=== PATIENT | male | born 1975 ===

== ENCOUNTER 2019-03-30 22:44 | Emergency (ER) | payer MEDICARE ==
[~2019-03-30] VITALS: Ht 182.9 cm; Wt 128.5 kg
[2019-03-30 22:51] VITALS: TEMP 97.3
[2019-03-30] MEDS ORDERED: PRINIVIL5 MG PO (23:54)
[2019-03-30] MEDS ORDERED: NEURONTIN300 MG/CAP PO (23:55)
[2019-03-30] MEDS ORDERED: INSULIN (23:55)
[2019-03-31 00:09] LABS: BASO % 0.3 % (0.0-2.0); EOS # 0.1 (0.0-0.7); EOS % 0.7 % (0-4.0); GRAN # 4.7 (1.4-6.5); GRAN % 49.4 % (42.2-75.2); HEMATOCRIT 48.7 % (42.0-52.0); HEMOGLOBIN 16.2 g/dl (13.5-18.0); LYMPH # 3.7 (1.2-3.4); LYMPH % 38.6 % (20.0-51.0); MEAN CELL VOLUME 84 fl (80.0-100.0); MEAN CORPUSCULAR HEMOGLOBIN 28 pg (27.0-31.0); MEAN CORPUSCULAR HGB CONC 33 g/dl (33.0-37.0); MEAN PLATELET VOLUME 10.5 fl (7.4-10.4); MONO % 10.5 % (1.7-9.3); PLATELET COUNT 253 K/mm3 (130-400); RED BLOOD COUNT 5.82 M/mm3 (4.20-5.60); REDCELL DISTRIBUTION WIDTH-CV 11.9 % (11.5-14.5)
[2019-03-31 00:23] LABS: ANION GAP 10 mmol/L (7-16); BLOOD UREA NITROGEN 12 mg/dL (9-20); C-REACTIVE PROTEIN < 0.5 mg/dL (0.0-0.9); CALCIUM 9.4 mg/dL (8.4-10.2); CARBON DIOXIDE 26 mmol/L (22-30); CHLORIDE 102 mmol/L (98-107); CREATININE, serum 0.59 (0.66-1.25); GLUCOSE 236 mg/dL (74-106); POTASSIUM 4.2 mmol/L (3.4-5.0); SODIUM 138 mmol/L (137-145); URIC ACID 3.8 mg/dL (3.5-8.5)
[2019-03-31] MEDS ORDERED: NORCO 325 MG-51 TAB PO (02:27)
[2019-03-31 02:37] VITALS: BP 141/84; PULSE 93
== END 2019-03-31 02:44 | disposition home or self-care (01) ==
LOC: COL.ER 22:44
PROVIDERS: Emergency Medicine
DX: E11.40 Type 2 diabetes mellitus with diabetic neuropathy, unspecified (principal); M25.561 Pain in right knee; I10 Essential (primary) hypertension; E11.9 Type 2 diabetes mellitus without complications; Z79.4 Long term (current) use of insulin
CPT/HCPCS: J1170; L1846

== ENCOUNTER 2019-04-16 03:59 | Emergency (ER) | payer MEDICARE ==
[~2019-04-16] VITALS: Ht 182.9 cm; Wt 122.7 kg
[~2019-04-16 03:59] MED LIST: INSULIN; NEURONTIN300 MG/CAP PO; NORCO 325 MG-51 TAB PO; PRINIVIL5 MG PO
[2019-04-16] MEDS ORDERED: NEURONTIN300 MG/CAP PO (06:56)
[2019-04-16 07:35] VITALS: BP 181/111; PULSE 93; TEMP 98
== END 2019-04-16 07:35 | disposition home or self-care (01) ==
LOC: COL.ER 03:59
DX: E11.42 Type 2 diabetes mellitus with diabetic polyneuropathy (principal); I10 Essential (primary) hypertension; Z79.4 Long term (current) use of insulin
CPT/HCPCS: J1885

== ENCOUNTER 2019-04-23 10:39 | Emergency (ER) | payer BC ==
[2019-04-23 10:54] VITALS: TEMP 97.3
[2019-04-23 11:25] LABS: COLLECTION METHOD CLEAN CATCH
[2019-04-23 11:36] LABS: MUCOUS Present /lpf; PH 5 (5-8); SQUAMOUS EPITHELIAL 0-2 /hpf; URINE APPEARANCE Hazy; URINE BACTERIA None Seen /hpf; URINE BILIRUBIN Negative (NEGATIVE); URINE BLOOD Negative (NEGATIVE); URINE COLOR Yellow; URINE GLUCOSE 2+ (NEGATIVE); URINE KETONE Negative (NEGATIVE); URINE LEUKOCYTE ESTERASE Negative (NEGATIVE); URINE NITRATE Negative (NEGATIVE); URINE PROTEIN(semi-quant) Negative (NEGATIVE); URINE RBC 0-2 /hpf; URINE UROBILINOGEN Negative (NEGATIVE)
[2019-04-23 11:36] LABS: BASO % 0.3 % (0.0-2.0); EOS # 0.1 (0.0-0.7); GRAN # 4.2 (1.4-6.5); GRAN % 58.6 % (42.2-75.2); HEMATOCRIT 50.3 % (42.0-52.0); HEMOGLOBIN 17.1 g/dl (13.5-18.0); LYMPH # 1.6 (1.2-3.4); LYMPH % 22.6 % (20.0-51.0); MEAN CELL VOLUME 82 fl (80.0-100.0); MEAN CORPUSCULAR HEMOGLOBIN 28 pg (27.0-31.0); MEAN CORPUSCULAR HGB CONC 34 g/dl (33.0-37.0); MEAN PLATELET VOLUME 10.4 fl (7.4-10.4); MONO # 1.2 (0.1-0.6); MONO % 17.2 % (1.7-9.3); PLATELET COUNT 290 K/mm3 (130-400); RED BLOOD COUNT 6.15 M/mm3 (4.20-5.60); REDCELL DISTRIBUTION WIDTH-CV 11.9 % (11.5-14.5)
[2019-04-23 11:53] LABS: ALANINE AMINOTRANSFERASE < 6 U/L (21-72); ALBUMIN 3.9 gm/dL (3.5-5.0); ALKALINE PHOSPHATASE 65 U/L (50-136); ANION GAP 15 mmol/L (7-16); AST,SGOT 13 U/L (15-37); BILIRUBIN,TOTAL 0.9 mg/dL (0.0-1.0); BLOOD UREA NITROGEN 12 mg/dL (9-20); C-REACTIVE PROTEIN 2.5 mg/dL (0.0-0.9); CARBON DIOXIDE 21 mmol/L (22-30); CHLORIDE 103 mmol/L (98-107); CREATININE, serum 0.66 (0.66-1.25); GLUCOSE 248 mg/dL (74-106); LIPASE 40 U/L (23-300); SODIUM 139 mmol/L (137-145); TOTAL PROTEIN 7.4 gm/dL (6.4-8.2)
[2019-04-23] MEDS ORDERED: ZOFRAN ODT8 MG PO (14:37)
[2019-04-23] MEDS ORDERED: NEURONTIN300 MG/CAP PO (14:37)
[2019-04-23 15:21] VITALS: BP 166/123; PULSE 98
== END 2019-04-23 16:21 | disposition home or self-care (01) ==
LOC: COL.ER 10:39
PROVIDERS: Emergency Medicine
DX: R19.7 Diarrhea, unspecified (principal); R11.2 Nausea with vomiting, unspecified; K82.8 Other specified diseases of gallbladder; I10 Essential (primary) hypertension; E11.40 Type 2 diabetes mellitus with diabetic neuropathy, unspecified; Z91.14 Patient's other noncompliance with medication regimen; Z79.4 Long term (current) use of insulin
CPT/HCPCS: J2270; J2405; J2550; J7030; Q9967

== ENCOUNTER 2019-05-03 05:10 | Emergency (ER) | payer MEDICARE ==
[~2019-05-03] VITALS: Ht 182.9 cm; Wt 122.3 kg
[~2019-05-03 05:10] MED LIST changes: +ZOFRAN ODT8 MG PO
[2019-05-03 05:17] VITALS: TEMP 98.3
[2019-05-03 07:00] VITALS: BP 133/90; PULSE 102
== END 2019-05-03 07:00 | disposition home or self-care (01) ==
LOC: COL.ER 05:10
DX: M25.562 Pain in left knee (principal); G89.18 Other acute postprocedural pain
CPT/HCPCS: J3010

== ENCOUNTER 2019-06-05 18:19 | Emergency (ER) | payer MEDICARE ==
[~2019-06-05] VITALS: Ht 182.9 cm; Wt 116.4 kg
[2019-06-05 18:24] VITALS: TEMP 96.9
[2019-06-05 18:51] LABS: BASO % 0.2 % (0.0-2.0); EOS % 0.3 % (0-4.0); GRAN # 9.2 (1.4-6.5); GRAN % 72.6 % (42.2-75.2); HEMATOCRIT 49.6 % (42.0-52.0); HEMOGLOBIN 16.5 g/dl (13.5-18.0); LYMPH # 2.4 (1.2-3.4); LYMPH % 18.5 % (20.0-51.0); MEAN CELL VOLUME 83 fl (80.0-100.0); MEAN CORPUSCULAR HEMOGLOBIN 28 pg (27.0-31.0); MEAN CORPUSCULAR HGB CONC 33 g/dl (33.0-37.0); MEAN PLATELET VOLUME 10.3 fl (7.4-10.4); PLATELET COUNT 309 K/mm3 (130-400); RED BLOOD COUNT 5.97 M/mm3 (4.20-5.60); REDCELL DISTRIBUTION WIDTH-CV 12.1 % (11.5-14.5)
[2019-06-05 19:04] LABS: ALANINE AMINOTRANSFERASE < 6 U/L (21-72); ALBUMIN 4.1 gm/dL (3.5-5.0); ALKALINE PHOSPHATASE 65 U/L (50-136); ANION GAP 11 mmol/L (7-16); AST,SGOT 16 U/L (15-37); BILIRUBIN,TOTAL 0.8 mg/dL (0.0-1.0); BLOOD UREA NITROGEN 9 mg/dL (9-20); C-REACTIVE PROTEIN < 0.5 mg/dL (0.0-0.9); CALCIUM 9.7 mg/dL (8.4-10.2); CARBON DIOXIDE 26 mmol/L (22-30); CHLORIDE 99 mmol/L (98-107); CREATININE, serum 0.63 (0.66-1.25); GLUCOSE 213 mg/dL (74-106); LIPASE 43 U/L (23-300); POTASSIUM 4.1 mmol/L (3.4-5.0); SODIUM 136 mmol/L (137-145); TOTAL PROTEIN 7.5 gm/dL (6.4-8.2)
[2019-06-05] MEDS ORDERED: ZOFRAN ODT4 MG PO (20:54)
[2019-06-05] MEDS ORDERED: NORCO 325 MG-51 TAB PO (20:54)
[2019-06-05 21:10] VITALS: BP 137/115; PULSE 95
== END 2019-06-05 21:15 | disposition home or self-care (01) ==
LOC: COL.ER 18:19
PROVIDERS: Emergency Medicine
DX: R11.2 Nausea with vomiting, unspecified (principal); R10.13 Epigastric pain; R19.7 Diarrhea, unspecified; E11.9 Type 2 diabetes mellitus without complications; I10 Essential (primary) hypertension; Z79.82 Long term (current) use of aspirin; Z79.4 Long term (current) use of insulin
CPT/HCPCS: J2270; J2405; J7030; Q9967

== ENCOUNTER 2019-06-07 13:33 | Emergency (ER) | payer MEDICARE ==
[~2019-06-07] VITALS: Ht 182.9 cm; Wt 116.4 kg
[~2019-06-07 13:33] MED LIST changes: +ZOFRAN ODT4 MG PO
[2019-06-07 13:40] VITALS: TEMP 97
[2019-06-07 14:44] LABS: BASO % 0.4 % (0.0-2.0); EOS # 0.1 (0.0-0.7); EOS % 1.5 % (0-4.0); GRAN # 4.6 (1.4-6.5); GRAN % 59.1 % (42.2-75.2); HEMATOCRIT 49.6 % (42.0-52.0); HEMOGLOBIN 16.4 g/dl (13.5-18.0); LYMPH % 25.2 % (20.0-51.0); MEAN CELL VOLUME 83 fl (80.0-100.0); MEAN CORPUSCULAR HEMOGLOBIN 27 pg (27.0-31.0); MEAN CORPUSCULAR HGB CONC 33 g/dl (33.0-37.0); MEAN PLATELET VOLUME 10.7 fl (7.4-10.4); MONO # 1.1 (0.1-0.6); MONO % 13.4 % (1.7-9.3); PLATELET COUNT 292 K/mm3 (130-400); RED BLOOD COUNT 5.99 M/mm3 (4.20-5.60)
[2019-06-07 14:56] LABS: BILIRUBIN,TOTAL 0.7 mg/dL (0.0-1.0); C-REACTIVE PROTEIN 1.2 mg/dL (0.0-0.9); CALCIUM 9.5 mg/dL (8.4-10.2); CREATININE, serum 0.62 (0.66-1.25); POTASSIUM 3.9 mmol/L (3.4-5.0); TOTAL PROTEIN 7.4 gm/dL (6.4-8.2)
[2019-06-07] MEDS ORDERED: PHENERGAN 25 TA25 MG PO (18:42)
[2019-06-07] MEDS ORDERED: PERCOCET 325 MG1 TA2 PO (18:42)
[2019-06-07 19:09] VITALS: BP 171/116; PULSE 113
== END 2019-06-07 19:09 | disposition home or self-care (01) ==
LOC: COL.ER 13:33
PROVIDERS: Nurse Practitioner
DX: R10.13 Epigastric pain (principal); I10 Essential (primary) hypertension; E11.9 Type 2 diabetes mellitus without complications; Z79.4 Long term (current) use of insulin
CPT/HCPCS: J1170; J2270; J2405; J2550; J7030

== ENCOUNTER 2019-06-15 18:43 | Emergency (ER) | payer MEDICARE ==
[~2019-06-15] VITALS: Ht 182.9 cm; Wt 116.4 kg
[~2019-06-15 18:43] MED LIST changes: +PERCOCET 325 MG1 TA2 PO; +PHENERGAN 25 TA25 MG PO
[2019-06-15 18:45] VITALS: TEMP 96.8
[2019-06-15 19:11] LABS: COLLECTION METHOD CLEAN CATCH
[2019-06-15 19:14] LABS: BASO # 0.1 (0.0-0.2); BASO % 0.5 % (0.0-2.0); EOS % 0.2 % (0-4.0); GRAN # 6.3 (1.4-6.5); GRAN % 60.5 % (42.2-75.2); HEMATOCRIT 50.1 % (42.0-52.0); HEMOGLOBIN 16.4 g/dl (13.5-18.0); LYMPH # 2.8 (1.2-3.4); LYMPH % 27.3 % (20.0-51.0); MEAN CELL VOLUME 85 fl (80.0-100.0); MEAN CORPUSCULAR HEMOGLOBIN 28 pg (27.0-31.0); MEAN CORPUSCULAR HGB CONC 33 g/dl (33.0-37.0); MEAN PLATELET VOLUME 9.8 fl (7.4-10.4); MONO # 1.1 (0.1-0.6); MONO % 10.7 % (1.7-9.3); PLATELET COUNT 348 K/mm3 (130-400); REDCELL DISTRIBUTION WIDTH-CV 12.1 % (11.5-14.5)
[2019-06-15 19:35] LABS: ALBUMIN 4.4 gm/dL (3.5-5.0); BILIRUBIN,TOTAL 0.5 mg/dL (0.0-1.0); CALCIUM 9.7 mg/dL (8.4-10.2); CREATININE, serum 0.7 (0.66-1.25); POTASSIUM 4.5 mmol/L (3.4-5.0)
[2019-06-15 19:41] LABS: AMORPHOUS CRYSTAL Present /uL; HYALINE CAST >12 /lpf; MUCOUS Present /lpf; PH 7 (5-8); SQUAMOUS EPITHELIAL 0-2 /hpf; URINE APPEARANCE Hazy; URINE BACTERIA None Seen /hpf; URINE BILIRUBIN Negative (NEGATIVE); URINE BLOOD Negative (NEGATIVE); URINE COLOR Yellow; URINE GLUCOSE 2+ (NEGATIVE); URINE KETONE Negative (NEGATIVE); URINE LEUKOCYTE ESTERASE Negative (NEGATIVE); URINE NITRATE Negative (NEGATIVE); URINE PROTEIN(semi-quant) 1+ (NEGATIVE); URINE RBC 0-2 /hpf; URINE UROBILINOGEN Negative (NEGATIVE)
[2019-06-15 21:17] VITALS: BP 134/80; PULSE 89
== END 2019-06-15 21:15 | disposition home or self-care (01) ==
LOC: COL.ER 18:43
PROVIDERS: Nurse Practitioner Primary Care
DX: R10.11 Right upper quadrant pain (principal); Z79.4 Long term (current) use of insulin; Z88.6 Allergy status to analgesic agent
CPT/HCPCS: J1885

== ENCOUNTER 2019-09-18 21:08 | Emergency (ER) | payer MEDICARE ==
[~2019-09-18] VITALS: Ht 182.9 cm; Wt 103.6 kg
[2019-09-18 21:18] VITALS: TEMP 99.1
[2019-09-18 22:51] LABS: BASO % 0.3 % (0.0-2.0); EOS # 0.1 (0.0-0.7); EOS % 0.6 % (0-4.0); GRAN % 55.1 % (42.2-75.2); HEMOGLOBIN 15.8 g/dl (13.5-18.0); LYMPH # 3.7 (1.2-3.4); LYMPH % 34.2 % (20.0-51.0); MEAN CELL VOLUME 83 fl (80.0-100.0); MEAN CORPUSCULAR HEMOGLOBIN 27 pg (27.0-31.0); MEAN CORPUSCULAR HGB CONC 33 g/dl (33.0-37.0); MEAN PLATELET VOLUME 9.5 fl (7.4-10.4); MONO % 9.5 % (1.7-9.3); PLATELET COUNT 317 K/mm3 (130-400); RED BLOOD COUNT 5.78 M/mm3 (4.20-5.60); REDCELL DISTRIBUTION WIDTH-CV 12.3 % (11.5-14.5)
[2019-09-18 23:04] LABS: ALBUMIN 4.4 gm/dL (3.5-5.0); BILIRUBIN,TOTAL 0.3 mg/dL (0.0-1.0); CALCIUM 9.6 mg/dL (8.4-10.2); CREATININE, serum 0.74 (0.66-1.25); POTASSIUM 4.5 mmol/L (3.4-5.0); TOTAL PROTEIN 7.9 gm/dL (6.4-8.2)
[2019-09-18 23:31] VITALS: BP 143/81; PULSE 118
[2019-09-19 00:16] LABS: COLLECTION METHOD CLEAN CATCH
[2019-09-19] MEDS ORDERED: GLUCOPHAGE500 MG/TAB (00:17)
[2019-09-19 00:27] LABS: MUCOUS Present /lpf; PH 6 (5-8); SQUAMOUS EPITHELIAL 0-2 /hpf; URINE APPEARANCE Clear; URINE BACTERIA None Seen /hpf; URINE BILIRUBIN Negative (NEGATIVE); URINE BLOOD Negative (NEGATIVE); URINE COLOR Yellow; URINE GLUCOSE 3+ (NEGATIVE); URINE KETONE Negative (NEGATIVE); URINE LEUKOCYTE ESTERASE Negative (NEGATIVE); URINE NITRATE Negative (NEGATIVE); URINE PROTEIN(semi-quant) Negative (NEGATIVE); URINE RBC None Seen /hpf; URINE UROBILINOGEN Negative (NEGATIVE)
[2019-09-19] MEDS ORDERED: PERCOCET 325 MG1 TA2 PO (00:47)
[2019-09-19] MEDS ORDERED: LIDODERM 5% PATC1 EA TP (00:47)
[2019-09-19] MEDS ORDERED: FLEXERIL 1010 MG/TAB PO (00:47)
== END 2019-09-19 01:11 | disposition home or self-care (01) ==
LOC: COL.ER 21:08
PROVIDERS: Physician Assistant
DX: S39.012A Strain of muscle, fascia and tendon of lower back, initial encounter (principal); E11.9 Type 2 diabetes mellitus without complications; M54.17 Radiculopathy, lumbosacral region; I10 Essential (primary) hypertension; E11.42 Type 2 diabetes mellitus with diabetic polyneuropathy; Z88.6 Allergy status to analgesic agent; Z79.4 Long term (current) use of insulin; X58.XXXA Exposure to other specified factors, initial encounter
CPT/HCPCS: J1885

== ENCOUNTER 2019-09-21 09:53 | Emergency (ER) | payer MEDICARE ==
[~2019-09-21] VITALS: Ht 182.9 cm; Wt 127.3 kg
[~2019-09-21 09:53] MED LIST changes: +FLEXERIL 1010 MG/TAB PO; +GLUCOPHAGE500 MG/TAB; +LIDODERM 5% PATC1 EA TP
[2019-09-21 10:07] VITALS: BP 176/103; TEMP 98.7
[2019-09-21 11:25] VITALS: PULSE 91
== END 2019-09-21 11:25 | disposition home or self-care (01) ==
LOC: COL.ER 09:53
DX: M79.652 Pain in left thigh (principal); M79.651 Pain in right thigh; E11.9 Type 2 diabetes mellitus without complications; I10 Essential (primary) hypertension; Z88.6 Allergy status to analgesic agent; Z79.4 Long term (current) use of insulin
CPT/HCPCS: J2270; J2550